=== PATIENT | male | born 1985 | race Caucasian/White ===

== ENCOUNTER 2022-04-10 12:44 | Emergency (ER) | payer OTHER ==
--- OUTSIDE RECORDS SUMMARY | 2022-04-10 12:47 | XMS REPORT | Continuity of Care Document ---
:1985 Author Organization [facility] Address [address] [place] [address] Care Team Providers Name Role Phone Unavailable Unavailable Unavailable Payers Payer Name Policy Type Policy Number Effective Date Expiration Date S ource [employer] and C1 [id number] Common [facility] Blue [employer] and C1 [id number] Common [facility] Problems This patient has no known problems. Allergies, Adverse Reactions, Alerts This patient has no known allergies or adverse reactions. Social History Social Habit Start Date Stop Date Quantity Comments Source History of Tobacco Use Never Smoker [facility] Sex Assigned At Com [facility] Smoking Status Start Date Stop Date Source Never Smoker [facility] Medications This patient has no known medications. Vital Signs Vital Name Observation Time Observation Value Comments Source weight 2020-02-20 14:30:00 198.0 [lb_av] [facility] temperature 2020-02-20 14:30:00 97.8 [degF] [facility] bmi 2020-02-20 14:30:00 30.1 kg/m2 [facility] oximetry 2020-02-20 14:30:00 96 % Common [facility] blood pressure 2020-02-20 14:30:00 124 mm[Hg] Common [facility] - systolic [facility] blood pressure 2020-02-20 14:30:00 85 mm[Hg] Common [facility] - diastolic [facility] height 2020-02-20 14:30:00 68 [in_i] Common [facility] Procedures This patient has no known procedures. Encounters Start End Encounter Admission Attending Care Care Encounter Source Date/Time Date/Time Type Type Clinicians Facility Department ID 2021-06-22 Outpatient [facility] ST[facility] [id number] Common 15:44:01 [facility] 2021-05-26 Outpatient STLMLC STLC [id number] Common 11:58:10 [id number] [facility] 2020-03-06 2020-03-06 (TEL) STLMLC STLC [id number] Co mmon 00:00:00 00:00:00 [facility] 2020-02-20 2020-02-20 OFFICE STLC STLC [id number] Co mmon 00:00:00 00:00:00 VISIT [facility] it PT LEVEL 3 [facility] Results This patient has no known results.
[2022-04-10] MEDS ORDERED: KETOROLAC 30 MG/ML INJ ONE (13:14)
[2022-04-10 13:26] LABS: Urine Blood Negative (Negative); Urine Glucose Negative (Negative); Urine Protein Negative (Negative)
[2022-04-10 13:40] LABS: Urine RBC <5 /HPF (None Seen); Urine Sperm Present (None Seen)
--- NOTE | 2022-04-10 13:49 | RAD REPORT ---
[facility] DES[facility] - 04/10/2022 1:33 pm CLINICAL HISTORY: Nephrolithiasis, symptomatic/complicated COMPARISON: <Comparisons> TECHNIQUE: CT of the abdomen and pelvis was performed. All CT scans are performed using dose optimization technique as appropriate and may include automated exposure control or mA/KV adjustment according to patient size. FINDINGS: Lower chest: No acute abnormality. Liver: No acute abnormality or suspicious lesions. Biliary: No biliary ductal dilatation. Stomach: No significant focal abnormality. Duodenum: No significant focal abnormality. Pancreas: No significant abnormality. Spleen: No significant abnormality. Adrenal: No suspicious lesions. Kidney/ureter: No hydronephrosis. Bilateral nonobstructive nephrolithiasis. Retroperitoneum: No retroperitoneal adenopathy. Vascular: No aneurysm. Bowel: No significant focal abnormality. Normal appendix. Peritoneum: No ascites or free air. Bladder: Grossly unremarkable. Reproductive: No adnexal masses. Bones: No acute fracture. Other: n/a IMPRESSION: No acute intra-abdominal or pelvic finding. Bilateral nonobstructive nephrolithiasis. No rmal appendix.
--- NOTE | 2022-04-10 14:50 | RAD REPORT ---
EXAM DESCRIPTION: US - Scrotum Testicles - 04/10/2022 2:33 pm CLINICAL HISTORY: right testicular pain/mass COMPARISON: <Comparisons> FINDINGS: The right testicle measures 4.1 x 2.4 x 2.8 cm with volume of 14.5 cc. No intratesticular masses or evidence of testicular torsion. The left testicle measures 4.5 x 2.4 x 2.5 cm with volume of 13.6 cc. No intratesticular masses or ev idence of testicular torsion. Minimally complex 3.1 cm fluid collection arising from or adjacent to the right epididymis. This quinn esponds with the location of the reported palpable abnormality. Small left epididymal cyst measuring 6 millimeters. Small hydroceles. IMPRESSION: 1. Bilateral testicular blood flow. 2. The patient's palpable abnormality corresponds with a 3.1 cm minimally complex right epididymal cy st which was present on the ultrasound from 03/02/2020. It painful, urologic referral for aspiration could be considered. If asymptomatic, then it is of doubtful clinical significance.
--- NOTE | 2022-04-10 15:48 | ER ---
Nurse's Notes [facility] Name: Willis Palmer Age: 36 yrs Sex: Male : 1985 Arrival Date: 04/10/2022 Time: 12:45 Bed 4 Private MD: Diagnosis: Scrotal pain;Nephrolithiasis;Cyst of epididymis Presentation: 04/10 13:12 Chief complaint: Patient states: right testicle cyst causing increased pain over the kb3 last 2 months, suprapubic and right flank pain x2 days with hx of kidney stone. Coronavirus screen: Vaccine status: Patient reports being unvaccinated. Client denies travel out of the [place] in the last 14 days. Ebola Screen: Patient negative for fever greater than or equal to 101.5 degrees Fahrenheit, and additional compatible Ebola Virus Disease symptoms Patient denies exposure to infectious person. Patient denies travel to an Ebola-affected area in the 21 days before illness onset. Initial Sepsis Screen: Does the patient meet any 2 criteria? No. Patient's initial sepsis screen is negative. Does the patient have a suspected source of infection? No. Patient's initial sepsis screen is negative. Risk Assessment: Do you want to hurt yourself or someone else? Patient reports no desire to harm self or others. Onset of symptoms was April 08, 2022. 13:12 Method Of Arrival: Ambulatory 3 13:12 Acuity: PANCHO 3 kb3 Triage Assessment: 13:13 General: Appears in no apparent distress. Behavior is calm, cooperative. : Reports kb3 burning with urination, cramping, pain in right in suprapubic area flank(s), testicle, urgency, urinary frequency. Historical: - Allergies: 13:13 No Known Allergies; kb3 - Home Meds: 13:13 None [Active]; kb3 - PMHx: 13:13 Kidney stone; kb3 - PSHx: 13:13 None; kb3 - Immunization history:: Adult Immunizations up to date, Client reports having NOT received the Covid vaccine. Last tetanus immunization: unknown. - Social history:: Smoking status: Patient denies any tobacco usage or history of. Screenin:10 Abuse screen: Denies threats or abuse. Denies injuries from another. Nutritional bp screening: No deficits noted. Tuberculosis screening: No symptoms or risk factors identified. Fall Risk None identified. Assessment: 13:08 General: Appears distressed, Behavior is calm, cooperative, appropriate for age. Pain: bp Complains of pain in right flank and groin. Neuro: No deficits noted. Cardiovascular: No deficits noted. Respiratory: No deficits noted. GI: No signs and/or symptoms were reported involving the gastrointestinal system. : Reports burning with urination, pain in right flank(s), scrotum. EENT: No deficits noted. Derm: No deficits noted. Musculoskeletal: No deficits noted. 13:53 Reassessment: No changes from previously documented assessment. Patient and/or family bp updated on plan of care and expected duration. Pain level reassessed. 14:47 Reassessment: No changes from previously documented assessment. Patient and/or family bp updated on plan of care and expected duration. Pain level reassessed. 16:19 Reassessment: PT DC HOME AMBULATORY. bp Vital Signs: 13:12 BP 137 / 93; Pulse 79; Resp 20; Temp 98.8; Pulse Ox 100% ; Weight 83.91 kg; Height 5 kb3 ft. 8 in. (172.72 cm); Pain 5/10; 13:52 BP 116 / 81; Pulse 85; Resp 16; Pulse Ox 100% ; bp 14:47 BP 114 / 84; Pulse 74; Resp 15; Pulse Ox 100% ; bp 16:19 BP 121 / 80; Pulse 78; Resp 16; Pulse Ox 98% ; bp 13:12 Body Mass Index 28.13 (83.91 kg, 172.72 cm) kb3 ED Course: 12:45 Patient arrived in ED. as 12:46 Kandy Dover FNP-C [facility] snw 12:46 Nico Persaud DO is Attending Physician. snw 13:03 Jamil Mccain, RN is Primary Nurse. bp 13:10 Patient has correct armband on for positive identification. Bed in low position. Call bp light in reach. Side rails up X2. 13:13 Triage completed. kb3 13:13 Arm band placed on right wrist. Patient placed in an exam room, on a stretcher. kb3 13:15 Inserted saline lock: 20 gauge in right antecubital area, using aseptic technique. bp 13:35 CT Stone Protocol In Process Unspecified. EDMS 14:35 US Scrotum Testicles In Process Unspecified. EDMS 16:19 No provider procedures requiring assistance completed. IV discontinued, intact, bp bleeding controlled, No redness/swelling at site. Pressure dressing applied. Administered Medications: 13:15 Drug: Ketorolac 30 mg Route: IVP; Site: right antecubital; bp 16:21 Follow up: Response: No adverse reaction bp Medication: 16:19 VIS not applicable for this client. bp Outcome: 15:48 Discharge ordered by . jose alfredo 16:19 Discharged to home ambulatory. bp 16:19 Condition: stable 16:19 Discharge instructions given to patient, Instructed on discharge instructions, follow up and referral plans. medication usage, Demonstrated understanding of instructions, follow-up care, medications, Prescriptions given X 1. 16:21 Patient left the ED. bp Signatures: Dispatcher [employer] EDOH Kandy Dover, SILL WORKER-C SILL WORKER-Kareen Apodaca Brian, RN RN bp Chandrika King, RN RN kb3
--- NOTE | 2022-04-10 15:48 | EDPHYS ---
Physician Documentation [facility] Name: Willis Palmer Age: 36 yrs Sex: Male : 1985 Arrival Date: 04/10/2022 Time: 12:45 Bed 4 Private MD: ED Physician Nico Persaud HPI: 04/10 15:07 This 36 yrs old Male presents to ER via Ambulatory with complaints of Pelvic Pain, snw Flank Pain, Testicular Problem. 15:07 Pt states he has kidney issues and has had a testicular "cyst" for over six months that snw has been increasingly tender. Onset: The symptoms/episode began/occurred gradually. The patient has experienced a previous episode. The patient has not recently seen a physician. Historical: - Allergies: 13:13 No Known Allergies; kb3 - Home Meds: 13:13 None [Active]; kb3 - PMHx: 13:13 Kidney stone; kb3 - PSHx: 13:13 None; kb3 - Immunization history:: Adult Immunizations up to date, Client reports having NOT received the Covid vaccine. Last tetanus immunization: unknown. - Social history:: Smoking status: Patient denies any tobacco usage or history of. ROS: 13:54 Constitutional: Negative for fever, chills, and weight loss, Eyes: Negative for injury, snw pain, redness, and discharge, ENT: Negative for injury, pain, and discharge, Neck: Negative for injury, pain, and swelling, Cardiovascular: Negative for chest pain, palpitations, and edema, Respiratory: Negative for shortness of breath, cough, wheezing, and pleuritic chest pain, Abdomen/GI: Negative for abdominal pain, nausea, vomiting, diarrhea, and constipation, Back: Negative for injury and pain, MS/Extremity: Negative for injury and deformity, Skin: Negative for injury, rash, and discoloration, Neuro: Negative for headache, weakness, numbness, tingling, and seizure, Psych: Negative for depression, anxiety, suicide ideation, homicidal ideation, and hallucinations. 13:54 : Positive for "kidney issues and increased pressure to cyst". Exam: 13:52 Constitutional: This is a well developed, well nourished patient who is awake, alert, snw and in no acute distress. Head/Face: Normocephalic, atraumatic. Eyes: Pupils equal round and reactive to light, extra-ocular motions intact. Lids and lashes normal. Conjunctiva and sclera are non-icteric and not injected. Cornea within normal limits. Periorbital areas with no swelling, redness, or edema. ENT: Nares patent. No nasal discharge, no septal abnormalities noted. Tympanic membranes are normal and external auditory canals are clear. Oropharynx with no redness, swelling, or masses, exudates, or evidence of obstruction, uvula midline. Mucous membranes moist. Neck: Trachea midline, no thyromegaly or masses palpated, and no cervical lymphadenopathy. Supple, full range of motion without nuchal rigidity, or vertebral point tenderness. No Meningismus. Chest/axilla: Normal chest wall appearance and motion. Nontender with no deformity. No lesions are appreciated. Cardiovascular: Regular rate and rhythm with a normal S1 and S2. No gallops, murmurs, or rubs. Normal PMI, no JVD. No pulse deficits. Respiratory: Lungs have equal breath sounds bilaterally, clear to auscultation and percussion. No rales, rhonchi or wheezes noted. No increased work of breathing, no retractions or nasal flaring. Abdomen/GI: Soft, non-tender, with normal bowel sounds. No distension or tympany. No guarding or rebound. No evidence of tenderness throughout. Back: No spinal tenderness. No costovertebral tenderness. Full range of motion. Male : right testicle without masses, changes, supatesticular mass with increase tenderness over the past six months per pt. Pt states he has had an us in the past and the mass was said to be a cyst Skin: Warm, dry with normal turgor. Normal color with no rashes, no lesions, and no evidence of cellulitis. MS/ Extremity: Pulses equal, no cyanosis. Neurovascular intact. Full, normal range of motion. Neuro: Awake and alert, GCS 15, oriented to person, place, time, and situation. Cranial nerves II-XII grossly intact. Motor strength 5/5 in all extremities. Sensory grossly intact. Cerebellar exam normal. Normal gait. Psych: Awake, alert, with orientation to person, place and time. Behavior, mood, and affect are within normal limits. Vital Signs: 13:12 BP 137 / 93; Pulse 79; Resp 20; Temp 98.8; Pulse Ox 100% ; Weight 83.91 kg; Height 5 kb3 ft. 8 in. (172.72 cm); Pain 5/10; 13:52 BP 116 / 81; Pulse 85; Resp 16; Pulse Ox 100% ; bp 14:47 BP 114 / 84; Pulse 74; Resp 15; Pulse Ox 100% ; bp 16:19 BP 121 / 80; Pulse 78; Resp 16; Pulse Ox 98% ; bp 13:12 Body Mass Index 28.13 (83.91 kg, 172.72 cm) kb3 MDM: 13:03 Patient medically screened. snw 15:49 Data reviewed: vital signs, nurses notes. Data interpreted: Pulse oximetry: on room air snw is 100 %. Interpretation: normal. Counseling: I had a detailed discussion with the patient and/or guardian regarding: the historical points, exam findings, and any diagnostic results supporting the discharge/admit diagnosis, lab results, radiology results, the need for outpatient follow up, for definitive care, to return to the emergency department if symptoms worsen or persist or if there are any questions or concerns that arise at home. Response to treatment: the patient's symptoms have mildly improved after treatment. Special discussion: Based on the history and exam findings, there is no indication for further emergent testing or inpatient evaluation. I discussed with the patient/guardian the need to see the urologist for further evaluation of the symptoms. 04/10 12:56 Order name: Urine Microscopic Only; Complete Time: 13:48 snw 04/10 13:26 Order name: Urine Dipstick-Ancillary; Complete Time: 13:48 EDMS 04/10 12:56 Order name: CT Stone Protocol; Complete Time: 13:50 snw 04/10 12:56 Order name: Urine Dipstick-Ancillary (obtain specimen); Complete Time: 13:41 snw 04/10 13:48 Order name: US Scrotum Testicles; Complete Time: 15:05 snw Administered Medications: 13:15 Drug: Ketorolac 30 mg Route: IVP; Site: right antecubital; bp 16:21 Follow up: Response: No adverse reaction bp Disposition: 14:25 Co-signature as Attending Physician, Nico MIRANDA was immediately available onsite ms3 in the emergency department for consultation in the care of the patient. Disposition Summary: 12/11/22 15:48 Discharge Ordered Location: Home snw Condition: Stable snw Diagnosis - Scrotal pain snw - Nephrolithiasis snw - Cyst of epididymis snw Followup: snw - With: Emergency Department - When: As needed - Reason: Worsening of condition Followup: snw - With: Private Physician - When: 2 - 3 days - Reason: Recheck today's complaints, Continuance of care, Re-evaluation by your physician Discharge Instructions: - Discharge Summary Sheet snw - Epidermal Cyst Removal snw - Epidermal Cyst snw - Testicular Self-Exam snw Forms: - Medication Reconciliation Form snw - Thank You Letter snw - Antibiotic Education snw - Prescription Opioid Use snw Prescriptions: - Mobic 7.5 mg Oral Tablet - take 1 tablet by ORAL route once daily take with food; 20 tablet; Refills: 0, snw Product Selection Permitted Signatures: Dispatcher [employer] EDKandy Bender FNP-C CONSULTING SENIOR PRACTICE DIRECTOR-Csnw Jamil Mccain, RN RN bp Nico Persaud DO DO ms3 Chandrika King, RN RN kb3
[2022-04-10 16:29] VITALS: TEMP 98.8
[2022-04-10 16:46] VITALS: BP 121/80; O2SAT 98
== END 2022-04-10 16:21 | disposition home or self-care (01) ==
LOC: ER 12:44
DX: N20.0 Calculus of kidney (principal); N50.3 Cyst of epididymis; Z87.442 Personal history of urinary calculi
CPT/HCPCS: 74176; 76377; 76870; 81003; 81015; 96374; 99284